=== PATIENT | male | born 1965 | race Hispanic/Latino ===

== ENCOUNTER 2017-11-02 08:22 | Inpatient (IN) | payer OTHER ==
[2017-11-02] VITALS (9 sets, daily range): BP systolic 85–119; BP diastolic 31–59
[~2017-11-02] VITALS: Ht 182.9 cm; Wt 115.1 kg
[2017-11-02 09:01] LABS: BASOPHILS % (AUTO) 1.1 % (0.0-5.0); LYMPHOCYTES % (AUTO) 3.2 % (21.0-51.0); MEAN CORPUSCULAR HGB CONC 34.8 g/dL (32.0-36.0); MEAN CORPUSCULAR VOLUME 100.4 fL (79-99); MONOCYTES % (AUTO) 10.5 % (3.0-13.0); NEUTROPHILS % (AUTO) 85.2 % (40.0-77.0); PLATELET COUNT (AUTO) 134 K/uL (130-400); RED BLOOD CELL COUNT(AUTO) 3.28 MIL/uL (4.50-6.20); RED CELL DISTRIBUTION WIDTH 14.2 % (11.0-15.5); WHITE BLOOD COUNT (AUTO) 15.3 K/uL (4.8-10.8)
[2017-11-02 09:21] LABS: INR 2.08 (0.85-1.15); PARTIAL THROMBOPLASTIN TIME 49.2 SEC (26.3-35.5); PROTHROMBIN TIME 21.5 SEC (9.6-11.6)
[2017-11-02 09:23] LABS: CREATININE 2.5 mg/dL (0.5-1.5); POTASSIUM 3.8 mmol/L (3.5-5.1)
[2017-11-02 09:30] LABS: ALBUMIN 1.5 g/dL (3.5-5.0); BILIRUBIN,DIRECT 6.7 mg/dL (0.0-0.3); BILIRUBIN,TOTAL 9.2 mg/dL (0.2-1.0); TOTAL PROTEIN, SERUM 6.7 g/dL (6.0-8.3)
[2017-11-02 10:16] LABS: APPEARANCE,URINE Turbid (CLEAR); BILIRUBIN,URINE Large (NEGATIVE); COLOR,URINE Orange (YELLOW); GLUCOSE, URINE (UA) Negative (NEGATIVE); KETONES,URINE Negative (NEGATIVE); LEUKOCYTE ESTERASE ,URINE Moderate (NEGATIVE); NITRATE,URINE Positive (NEGATIVE); OCCULT BLOOD,URINE Moderate (NEGATIVE); PROTEIN,URINE Trace (NEGATIVE)
[2017-11-02 10:32] LABS: AMORPHOUS SEDIMENT,UR Moderate /LPF (None Seen); BACTERIA,URINE Moderate /HPF (None Seen); SQUAMOUS EPITHELIAL CELL,UR 30-50 /HPF (0-2)
[2017-11-02] MEDS ORDERED: LACTULOSE 20 GM/30 ML UDCUP ONE (11:10)
[2017-11-02] MEDS ORDERED: SODIUM CHLORIDE 0.9% 50 ML IV ONE (11:56)
[2017-11-02] MEDS ORDERED: CEFTRIAXONE SODIUM 1 GM ONE (11:56)
[2017-11-02] MEDS ORDERED: ONDANSETRON HCL 4 MG/2 ML VIAL ONE (12:02)
[2017-11-02] MEDS: PANTOPRAZOLE SODIUM 40 MG TABLET.DR PO SCH (15:39)
[2017-11-02] MEDS: LACTULOSE 20 GM/30 ML UDCUP PO SCH ×4 (16:00→23:47)
[2017-11-02 20:01] LABS: APPEARANCE BODY FLUID CLOUDY (CLEAR); COLOR,BODY FLUID DARK YELLOW (LT YELLOW); SPECIMENTYPE,BODY FLUID ASCITES; TOTAL VOLUME,BODY FLUID 4000 mL
[2017-11-02 20:03] LABS: BODY FLUID RBC 1670 /cu. mm.; BODY FLUID WBC 3207 /cu. mm.
[2017-11-02 20:05] LABS: BF LYMPHOCYTE 5 %
[2017-11-02] MEDS ORDERED: FURO40TA7 PO (22:32)
[2017-11-02] MEDS ORDERED: ZOLP10TA6 PO (22:32)
[2017-11-02] MEDS ORDERED: SPIR25TA6 PO (22:32)
[2017-11-02] MEDS: SODIUM CHLORIDE 0.9% 1000ML 1,000 ML IV SCH (23:01)
[2017-11-03] VITALS (7 sets, daily range): BP systolic 90–104; BP diastolic 38–54
[2017-11-03] MEDS: LACTULOSE 20 GM/30 ML UDCUP PO SCH ×3 (04:00→16:23)
[2017-11-03] MEDS: SODIUM CHLORIDE 0.9% 1000ML 1,000 ML IV SCH (06:12)
[2017-11-03] MEDS ORDERED: MORPHINE SULFATE 2 MG/ML 1ML SYG IV PRN (07:45)
[2017-11-03] MEDS ORDERED: ACETAMINOPHEN 325 MG TAB PO PRN (07:45)
[2017-11-03] MEDS ORDERED: LORAZEPAM 2 MG/ML 1 ML VIAL IM PRN (08:00)
[2017-11-03] MEDS ORDERED: CEFTRIAXONE SODIUM 1 GM IVP SCH (09:00)
[2017-11-03] MEDS ORDERED: COMPOUND IV REFRIGERATED 1 EACH IVSOLN MISC PRN (09:00)
[2017-11-03] MEDS ORDERED: M.V.I. IV [ADULT] 10 ML, FOLIC ACID 1 MG, THIAMINE HCL 100 MG in SODIUM CHLORIDE 0.9% 1... IV SCH (09:00)
[2017-11-03] MEDS: PANTOPRAZOLE SODIUM 40 MG TABLET.DR PO SCH (09:36)
[2017-11-03] MEDS: MIDODRINE HCL 5 MG TABLET PO SCH ×3 (09:36→21:05)
[2017-11-03] MEDS: ONDANSETRON HCL MDV 20ML 2 MG/ML VIAL IVP PRN (09:36)
[2017-11-03] MEDS: ZOSYN 3.375GM+NS 50ML 50 ML IV SCH ×2 (09:37→21:05)
[2017-11-04] MEDS: LACTULOSE 20 GM/30 ML UDCUP PO SCH ×4 (02:11→22:59)
[2017-11-04 03:51] VITALS: BP 103/60
[2017-11-04 03:58] LABS: HEMATOCRIT 31.7 % (42-54); MEAN CORPUSCULAR HEMOGLOBIN 35.1 pg (27.0-33.0); MEAN CORPUSCULAR HGB CONC 35.1 g/dL (32.0-36.0); PLATELET COUNT (AUTO) 141 K/uL (130-400); RED BLOOD CELL COUNT(AUTO) 3.17 MIL/uL (4.50-6.20); RED CELL DISTRIBUTION WIDTH 13.7 % (11.0-15.5); WHITE BLOOD COUNT (AUTO) 17.8 K/uL (4.8-10.8)
[2017-11-04 07:52] VITALS: BP 104/58
[2017-11-04] MEDS: ZOSYN 3.375GM+NS 50ML 50 ML IV SCH ×2 (09:06→22:59)
[2017-11-04] MEDS: PANTOPRAZOLE SODIUM 40 MG TABLET.DR PO SCH (09:06)
[2017-11-04] MEDS: MIDODRINE HCL 5 MG TABLET PO SCH ×3 (09:06→22:58)
[2017-11-04] MEDS: ONDANSETRON HCL MDV 20ML 2 MG/ML VIAL IVP PRN (10:14)
[2017-11-04] MEDS: SODIUM CHLORIDE 0.9% 1000ML 1,000 ML IV SCH ×2 (10:58→22:59)
[2017-11-04 11:50] VITALS: BP 95/59
[2017-11-04] MEDS: CHLORDIAZEPOXIDE HCL 25 MG CAP PO SCH ×2 (14:00→22:59)
[2017-11-04 16:08] VITALS: BP 108/54
[2017-11-04 19:00] VITALS: BP 109/52
[2017-11-04 23:00] VITALS: BP 89/49
[2017-11-05 04:00] VITALS: BP 97/56
[2017-11-05 04:05] LABS: HEMATOCRIT 33.8 % (42-54); MEAN CORPUSCULAR HEMOGLOBIN 34.2 pg (27.0-33.0); MEAN CORPUSCULAR HGB CONC 34.2 g/dL (32.0-36.0); MEAN CORPUSCULAR VOLUME 100.1 fL (79-99); PLATELET COUNT (AUTO) 125 K/uL (130-400); RED BLOOD CELL COUNT(AUTO) 3.38 MIL/uL (4.50-6.20); RED CELL DISTRIBUTION WIDTH 14.1 % (11.0-15.5); WHITE BLOOD COUNT (AUTO) 15.4 K/uL (4.8-10.8)
[2017-11-05 04:14] LABS: CREATININE 4.7 mg/dL (0.5-1.5); POTASSIUM 4.1 mmol/L (3.5-5.1)
[2017-11-05 07:32] VITALS: BP 106/59
[2017-11-05] MEDS ORDERED: TRAMADOL HCL 50 MG TABLET PO PRN (08:00)
[2017-11-05] MEDS: CHLORDIAZEPOXIDE HCL 25 MG CAP PO SCH ×3 (10:14→20:20)
[2017-11-05] MEDS: MIDODRINE HCL 5 MG TABLET PO SCH (10:14)
[2017-11-05] MEDS: PANTOPRAZOLE SODIUM 40 MG TABLET.DR PO SCH (10:14)
[2017-11-05] MEDS: ZOSYN 3.375GM+NS 50ML 50 ML IV SCH (10:14)
[2017-11-05] MEDS: LACTULOSE 20 GM/30 ML UDCUP PO SCH (10:14)
[2017-11-05 11:31] VITALS: BP 91/49
[2017-11-05] MEDS ORDERED: ALBUMIN (HUMAN) 25% 100 ML IV SCH (14:00)
[2017-11-05] MEDS ORDERED: THIAMINE HCL 100 MG TABLET PO SCH (14:00)
[2017-11-05] MEDS ORDERED: OCTREOTIDE ACETATE 100 MCG/ML AMP SQ SCH (14:00)
[2017-11-05 16:12] VITALS: BP 100/56
[2017-11-05] MEDS ORDERED: LORAZEPAM 2 MG/ML 1 ML VIAL SQ PRN (17:15)
[2017-11-05] MEDS ORDERED: HYDROCODONE/ACETAMINOPHEN 5/325 MG TAB PO PRN (17:15)
[2017-11-05 19:20] VITALS: BP 92/47
[2017-11-05] MEDS: HYDROMORPHONE 1 MG/1 ML AMP SQ PRN (20:20)
[2017-11-05 23:22] VITALS: BP 61/35
[2017-11-06] MEDS: HYDROMORPHONE 1 MG/1 ML AMP SQ PRN ×2 (03:48→09:16)
[2017-11-06 04:22] VITALS: BP 77/26
[2017-11-06 07:46] VITALS: BP 81/35
[2017-11-06] MEDS: CHLORDIAZEPOXIDE HCL 25 MG CAP PO SCH (09:00)
[2017-11-06] MEDS ORDERED: LORAZEPAM 2 MG/ML 1 ML VIAL SQ PRN (09:15)
[2017-11-06] MEDS ORDERED: HYDROMORPHONE 1 MG/1 ML AMP SQ SCH (12:00)
== END 2017-11-06 09:57 | disposition expired | DRG 871 ==
LOC: EDH 08:22 → EDHIP 08:23 → 2AH 15:13
PROVIDERS: ADMIT Hospitalist; ATTEND Hospitalist
PROC: 0W9G3ZZ Drainage of Peritoneal Cavity, Percutaneous Approach (ICD-10-PCS; principal; 2017-11-02)
DX: A41.50 Gram-negative sepsis, unspecified (principal); K72.00 Acute and subacute hepatic failure without coma; E43 Unspecified severe protein-calorie malnutrition; N18.6 End stage renal disease; K65.2 Spontaneous bacterial peritonitis; N17.9 Acute kidney failure, unspecified; N39.0 Urinary tract infection, site not specified; E87.1 Hypo-osmolality and hyponatremia; K70.31 Alcoholic cirrhosis of liver with ascites; B96.89 Other specified bacterial agents as the cause of diseases classified elsewhere; F10.10 Alcohol abuse, uncomplicated; D64.9 Anemia, unspecified; D69.6 Thrombocytopenia, unspecified; E87.6 Hypokalemia; Z68.34 Body mass index [BMI] 34.0-34.9, adult
CPT/HCPCS: 36415; 49083; 74176; 80048; 80076; 81001; 82140; 83605; 83690; 84484; 85025; 85027; 85610; 85730; 87040; 87071; 87088; 87186; 87205; 89051; 93005; 97039; A4218; J0696; J1170; J2060; J2354; J2405; J2543; J3411; J3490; J7030; Q0161